=== PATIENT | female | born 1945 | race Caucasian/White ===

== ENCOUNTER 2016-07-01 07:16 | Day surgery (SDC) | payer MEDICARE, OTHER ==
[2016-07-01] MEDS ORDERED: LACTATED RINGERS 1,000 ML IV ONE (07:48)
[2016-07-01] MEDS ORDERED: fentaNYL 250 MCG/5 ML VIAL IVP ONE (08:30)
[2016-07-01] MEDS ORDERED: MIDAZOLAM 2 MG/2 ML VIAL IVP ONE (08:30)
== END 2016-07-01 07:17 | disposition home or self-care (01) ==
PROC: 0DBG8ZX Excision of Left Large Intestine, Via Natural or Artificial Opening Endoscopic, Diagnostic (ICD-10-PCS; 2016-07-01)
PROC: 0DBL8ZX Excision of Transverse Colon, Via Natural or Artificial Opening Endoscopic, Diagnostic (ICD-10-PCS; 2016-07-01)
PROC: 0DBP8ZX Excision of Rectum, Via Natural or Artificial Opening Endoscopic, Diagnostic (ICD-10-PCS; 2016-07-01)
PROC: 0DBF8ZX Excision of Right Large Intestine, Via Natural or Artificial Opening Endoscopic, Diagnostic (ICD-10-PCS; principal; 2016-07-01 08:30)
DX: Z12.11 Encounter for screening for malignant neoplasm of colon (principal); D12.2 Benign neoplasm of ascending colon; K57.30 Diverticulosis of large intestine without perforation or abscess without bleeding; Z87.19 Personal history of other diseases of the digestive system; Z88.1 Allergy status to other antibiotic agents; Z88.5 Allergy status to narcotic agent; E11.9 Type 2 diabetes mellitus without complications; G47.33 Obstructive sleep apnea (adult) (pediatric); E03.9 Hypothyroidism, unspecified
CPT/HCPCS: 45380; 88305; J3010; J7120

== ENCOUNTER 2018-01-13 09:36 | Outpatient (CLI) | payer MEDICARE, OTHER ==
--- NOTE | 2018-01-13 12:13 | CARDIAC PROCEDURE NOTE ---
DATE OF SERVICE: 01/13/2018 Physician: JESSICA Ray PRIMARY CARE PHYSICIAN: Dr. Mcintyre. PROCEDURE: Exercise tolerance test. PROCEDURE SYMPTOMS: Atypical chest pain. CARDIAC RISK FACTORS 1. Age. 2. Diabetes. 3. Hyperlipidemia. CLINICAL HISTORY: 72-year-old female without known coronary artery disease. She has no illness symp toms today. PHYSICAL EXAMINATION VITAL SIGNS: BP 132/84, heart rate 60, height 62 inches, weight 172 pounds, BMI 31.5. PROCEDURE AND FINDINGS Patient's identity and date are verified and consent signed. Patient performed treadmill exercise using a modified David protocol with maximum speed of 1.7 miles per hour. She completed 8 minutes, 55 seconds, and a workload of 4.64 metabolic equivalents. Elvira l blood pressure was 162/70 with a heart rate of 148 beats per minute or 100% of maximal predicted he art rate for age. On stopping exercise, the patient had transient hypotension to BP 95/54 accompanie d by mild lightheadedness. Patient stopped because of leg fatigue. The resting ECG demonstrated nor mal sinus rhythm with a rare PVC. Maximal ST segment depression was less than 0.5 mm and upsloping. There was rare single PVC ectopy. FINAL IMPRESSIONS 1. No ECG indications of ischemia. 2. No anginal symptoms. 3. Rare PVC ectopy. 4. Mild dizziness with transient BP drop on cessation of exercise. TD: 01/13/2018 11:37
[2018-01-13 15:54] VITALS: BP 110/68
== END 2018-01-13 09:37 | disposition home or self-care (01) ==
LOC: DI 09:36
PROVIDERS: ATTEND Family Medicine
DX: R07.89 Other chest pain (principal)

== ENCOUNTER 2018-08-28 12:40 | Outpatient (CLI) | payer MEDICARE, OTHER ==
--- NOTE | 2018-08-29 00:20 | Ultrasound Report ---
Reason: PAIN NECK/THROAT Procedure Date: 08/28/2018 Accession Number: [id number] / [id number] Procedure: US - Head or Neck Soft Tissue CPT Code: FULL RESULT: EXAM: NECK ULTRASOUND EXAM DATE: 08/28/2018 02:00 PM. CLINICAL HISTORY: PAIN NECK/THROAT. COMPARISON: None. TECHNIQUE: Real-time sonographic imaging was performed by the skinner pelts utilizing color-flow. Multiple customer retention representative static images were saved for review. FINDINGS: Normal subcutaneous soft tissues are noted in the area of clinical concern. Specifically, no mass or adenopathy identified. No collections are present. IMPRESSION: 1. No concerning findings such as a mass, adenopathy or collection. 2. If symptoms persist or remain clinically concerning, recommend contrast-enhanced CT or MRI of the neck. [facility]
== END 2018-08-28 12:41 | disposition home or self-care (01) ==
LOC: DI 12:40
PROVIDERS: ATTEND Specialist
DX: R07.0 Pain in throat (principal); M54.2 Cervicalgia
CPT/HCPCS: 76536

== ENCOUNTER 2018-09-21 14:21 | Outpatient (CLI) | payer MEDICARE, OTHER ==
--- NOTE | 2018-09-21 15:20 | XRAY Report ---
Reason: AIRWAY OBSTRUCTION Procedure Date: 09/21/2018 Accession Number: [id number] / [id number] Procedure: XR - Neck Soft Tissue CPT Code: FULL RESULT: EXAM: SOFT TISSUE NECK RADIOGRAPHY. EXAM DATE: 09/21/2018 02:34 PM. CLINICAL HISTORY: Airway obstruction. COMPARISONS: None. TECHNIQUE: 2 views. FINDINGS: Soft Tissues: No prevertebral soft tissue swelling. The epiglottis and aryepiglottic folds are unremarkable. No tonsillar or adenoidal enlargement. No radiopaque foreign body. Regional Skeleton: Unremarkable for age. Other: The visualized lung apices are clear. IMPRESSION: Normal soft tissue neck radiography. [facility]
== END 2018-09-21 14:22 | disposition home or self-care (01) ==
LOC: DI 14:21
PROVIDERS: ATTEND Specialist
DX: J98.8 Other specified respiratory disorders (principal)
CPT/HCPCS: 70360

== ENCOUNTER 2019-04-26 20:56 | Emergency (ER) | payer MEDICARE, OTHER ==
[2019-04-26 21:25] LABS: BASOPHILS # (AUTO) 0.1 10^3/uL (0.0-0.1); BASOPHILS % (AUTO) 0.6 %; EOSINOPHILS # (AUTO) 0.3 10^3/uL (0.0-0.7); EOSINOPHILS % (AUTO) 3.6 %; HGB - HEMOGLOBIN 12.4 g/dL (12.0-16.0); LYMPHOCYTES # (AUTO) 3.1 10^3/uL (1.5-3.5); MEAN CORPUSCULAR HEMOGLOBIN 29.9 pg (27.0-31.0); MEAN CORPUSCULAR HGB CONC 32.5 g/dL (32.0-36.0); MEAN PLATELET VOLUME 9.5 fL (7.9-10.8); MONOCYTES # (AUTO) 0.5 10^3/uL (0.0-1.0); MONOCYTES % (AUTO) 5.7 %; NEUTROPHILS # (AUTO) 4.4 10^3/uL (1.5-6.6); NEUTROPHILS % (AUTO) 52.9 %; PLT - PLATELET COUNT 259 10^3/uL (130-450); RED BLOOD COUNT 4.15 10^6/uL (4.20-5.40); WHITE BLOOD COUNT 8.4 x10^3/uL (4.8-10.8)
[2019-04-26 21:36] LABS: ALBUMIN/GLOBULIN RATIO 1.3 (1.0-2.2); BILIRUBIN,TOTAL 0.4 mg/dL (0.2-1.0); CALCIUM 9.1 mg/dL (8.5-10.3); CREATININE 0.7 mg/dL (0.4-1.0)
--- NOTE | 2019-04-26 21:44 | XRAY Report ---
Reason: chest pain Procedure Date: 04/26/2019 Accession Number: [id number] / [id number] Procedure: XR - Chest 1 View X-Ray CPT Code: 47284 Final Report FULL RESULT: EXAM: CHEST RADIOGRAPHY EXAM DATE: 04/26/2019 09:24 PM. CLINICAL HISTORY: Chest pain. COMPARISON: CHEST 2 VIEW PA/LAT 04/28/2013 4:51 PM. TECHNIQUE: 1 view. FINDINGS: Lungs/Pleura: No significant consolidation, effusion, or definite pneumothorax. Mediastinum: Cardiac silhouette is within normal limits when accounting for lung volumes and technique. Other: Subacute fracture of the anterior portion of the right fourth rib. IMPRESSION: Stable appearance. No acute cardiopulmonary abnormality demonstrated. [facility]
--- NOTE | 2019-04-26 22:07 | ED Physician Documentation ---
PD HPI CHEST PAIN - Stated complaint Stated Complaint: CHEST PX - Chief complaint Chief Complaint: Cardiac - History obtained from History obtained from: Patient, Family - History of Present Illness Timing - onset: Enter time (1999), Today Timing - onset during: Rest Timing - duration: Minutes Timing - details: Abrupt onset, Now resolved Quality: Sharp, Pain Location: Substernal Radiation: No: Jaw, Neck, Back, Abdominal, Left upper extremity, Right upper extremity Improved by: Rest Worsened by: No: Inspiration, Movement, Palpation Associated symptoms: No: Shortness of air, Diaphoresis, Nausea, Feeling faint / dizzy, General Weakness, Palpitations, Cough Similar symptoms before: Has not had sx before Recently seen: Not recently seen - Additional information Additional information: Previously well 73-year-old female with a history of type 2 diabetes and hypertension was sitting on her couch night at 8:00 when she developed some substernal pain in her chest. She denies any radiation to her neck jaw or back the episode was brief in nature when it recurred she became concerned and her has brought her to the emergency department. She is also complaining of a headache that is throbbing in nature it is not present now it was present after this episode of pain and she indicates that she is cut down on her caffeine and did not drink coffee today. She has previously been evaluated for chest pain with a an exercise treadmill test which was negative. She does have a family history of coronary disease in her father and grandfather but not early disease. Review of Systems Constitutional: denies: Fever Eyes: denies: Decreased vision Ears: denies: Ear pain Nose: denies: Rhinorrhea / runny nose, Congestion Cardiac: reports: Chest pain / pressure. denies: Palpitations, Pedal edema, Calf pain Respiratory: denies: Dyspnea, Cough GI: denies: Abdominal Pain, Nausea, Vomiting : denies: Dysuria, Frequency Skin: denies: Rash Musculoskeletal: denies: Neck pain, Back pain, Extremity pain Neurologic: denies: Generalized weakness, Focal weakness, Numbness PD PAST MEDICAL HISTORY - Past Medical History Past Medical History: Yes Cardiovascular: High cholesterol Respiratory: Asthma, Sleep apnea, CPAP use Endocrine/Autoimmune: Type 2 diabetes, HyPOthyroidism GI: GERD, Ulcerative colitis : Incontinence, Frequency HEENT: None, Chronic vision loss Psych: None Musculoskeletal: Other Derm: Other - Past Surgical History Past Surgical History: No General: Cholecystectomy, Colonoscopy HEENT: Tonsil/Adenoidectomy - Present Medications Home Medications: Ambulatory Orders Medication Instructions Recorded Confirmed Albuterol [Ventolin Hfa] PRN 08/29/13 04/29/14 Levothyroxine Sodium [Synthroid] 75 mcg PO 08/29/13 04/29/14 Metformin HCl [Metformin HCl ER] 500 mg PO DAILY 08/29/13 04/29/14 Omeprazole [Prilosec] 10 mg PO 08/29/13 04/29/14 Aspirin [Katie Chewable] 81 mg PO DAILY 04/29/14 04/29/14 Flaxseed Oil 1,000 mg PO 04/29/14 04/29/14 - Allergies Allergies/Adverse Reactions: Allergies Allergy/AdvReac Type Severity Reaction Status Date / Time nitrofurantoin Allergy Rash Verified 04/29/14 09:22 [From Macrobid] nitrofurantoin Allergy Rash Verified 04/29/14 09:22 macrocrystalline * [From Macrobid] codeine AdvReac Mild Unknown Verified 04/29/14 09:22 - Social History Does the pt smoke?: No Smoking Status: Never smoker Does the pt drink ETOH?: Yes Does the pt have substance abuse?: No - Immunizations Immunizations are current?: Yes - POLST Patient has POLST: No PD ED PE NORMAL - Vitals Vital signs reviewed: Yes (Mild hypertension) - General General: Alert and oriented X 3, No acute distress, Well developed/nourished - HEENT HEENT: Atraumatic, PERRL, EOMI - Neck Neck: Supple, no meningeal sign, No bony TTP - Cardiac Cardiac: RRR, No murmur - Respiratory Respiratory: No respiratory distress, Clear bilaterally, Other (No chest wall tenderness) - Abdomen Abdomen: Normal bowel sounds, Soft, Non tender, Non distended, No organomegaly - Back Back: No CVA TTP, No spinal TTP - Derm Derm: Normal color, Warm and dry, No rash, Other - Extremities Extremities: No deformity, No edema, No calf tenderness / cord - Neuro Neuro: Alert and oriented X 3, bending frame operator 2-12 intact, No motor deficit, No sensory de ficit, Normal speech Eye Opening: Spontaneous Motor: Obeys Commands Verbal: Oriented GCS Score: 15 - Psych Psych: Normal mood, Normal affect Results - Vitals Vitals: Vital Signs - 24 hr 04/26/19 21:03 Temperature 37.1 C Heart Rate 63 Respiratory 15 Rate Blood Pressure 133/60 H O2 Saturation 96 Oxygen O2 Source Room air - Labs Labs: Laboratory Tests 04/26/19 04/26/19 04/26/19 21:18 21:18 21:18 WBC 8.4 RBC 4.15 L Hgb 12.4 Hct 38.2 MCV 92.0 MCH 29.9 MCHC 32.5 RDW 13.0 Plt Count 259 MPV 9.5 Neut # (Auto) 4.4 Lymph # (Auto) 3.1 [place] # (Auto) 0.5 Eos # (Auto) 0.3 Baso # (Auto) 0.1 Absolute Nucleated RBC 0.00 Nucleated RBC % 0.0 Sodium 138 Potassium 3.9 Chloride 101 Carbon Dioxide 24 Anion Gap 13.0 BUN 10 Creatinine 0.7 Estimated GFR (MDRD) 82 L Glucose 129 H Calcium 9.1 Total Bilirubin 0.4 AST 22 ALT 20 Alkaline Phosphatase 55 Troponin I High Sens 3.2 Total Protein 7.0 Albumin 4.0 Globulin 3.0 Albumin/Globulin Ratio 1.3 Lipase 33 04/26/19 23:00 WBC RBC Hgb Hct MCV MCH MCHC RDW Plt Count MPV Neut # (Auto) Lymph # (Auto) [place] # (Auto) Eos # (Auto) Baso # (Auto) Absolute Nucleated RBC Nucleated RBC % Sodium Potassium Chloride Carbon Dioxide Anion Gap BUN Creatinine Estimated GFR (MDRD) Glucose Calcium Total Bilirubin AST ALT Alkaline Phosphatase Troponin I High Sens < 2.3 L Total Protein Albumin Globulin Albumin/Globulin Ratio Lipase - Rads (name of study) Chest Radiology: Prelim report reviewed, EMP read indepedently, See rad report Procedures - Bedside sono Bedside sono by EMP: With use of bedside ultrasound the gallbladder is imaged, it is contracted, there are no obvious stones. The gallbladder is sonographically nontender. - IVC sono (time) 2002 Bedside IVC sono: IVC measures (cm) (0.97), IVC collapsed c insp (cm) (complete), Dehydration (est 1+ liter deficit) PD MEDICAL DECISION MAKING - ED course Complexity details: reviewed old records, reviewed results, re-evaluated patient, considered differential, d/w patient Departure - Departure Disposition: 01 Home, Self Care Clinical Impression: Atypical chest pain Condition: Stable Instructions: ED Chest Pain Atypical Unkn Cause Follow-Up: Martell Mcintyre DO [Primary Care Provider] -
[2019-04-26 23:46] VITALS: BP 135/80
== END 2019-04-26 23:46 | disposition home or self-care (01) ==
LOC: ED 20:56
DX: R07.89 Other chest pain (principal); R51 Headache; E86.0 Dehydration; K82.0 Obstruction of gallbladder; I10 Essential (primary) hypertension; E11.9 Type 2 diabetes mellitus without complications; Z79.84 Long term (current) use of oral hypoglycemic drugs; Z79.82 Long term (current) use of aspirin; Z82.49 Family history of ischemic heart disease and other diseases of the circulatory system
CPT/HCPCS: 36415; 71045; 80053; 83690; 84484; 85025; 93005; 99283; 99284

== ENCOUNTER 2019-07-18 10:53 | Outpatient (CLI) | payer MEDICARE, OTHER ==
--- NOTE | 2019-07-18 15:07 | CT Report ---
Reason: MILD DEMENTIA Procedure Date: 07/18/2019 Accession Number: [id number] / [id number] Procedure: CT - HEAD WO CPT Code: Final Report FULL RESULT: CT HEAD WITHOUT CONTRAST INDICATION: 74-year-old female with mild dementia. TECHNIQUE: Sequential 5 mm axial images were obtained through the brain. In accordance with CT protocol optimization, one or more of the following dose reduction techniques were utilized for this exam: automated exposure control, adjustment of mA and/or KV based on patient size, or use of iterative reconstructive technique. COMPARISON: None. FINDINGS: There is generalized dilatation of the cerebral cortical sulci and cerebellar folia considered within normal limits for stated age. There is mild to moderate third/lateral ventriculomegaly that is likely ex vacuo in nature. There is no apparent discordance between the degree of ventriculomegaly and the amount of cortical sulcal dilatation to suggest the possibility of NPH or other form of hydrocephalus. Noted is a cavum vellum interpositum a normal anatomical variant. A mild amount of white matter disease is identified in the supratentorial brain, likely representing chronic microangiopathy. The attenuation of the cortex and white matter is otherwise unremarkable. There is no intracranial hemorrhage or abnormal extra-axial fluid collection. No mass effect or midline shift. There is calcified atherosclerotic plaque at the carotid siphons bilaterally. The skull and skull base appear intact. The middle ear cavities and imaged mastoid air cells appear clear. The imaged paranasal sinuses appear clear. IMPRESSION: 1. Senescent changes are demonstrated within the brain, considered within normal limits for stated age. 2. No specific focal atrophy is identified. 3. A mild amount of white matter disease is identified, likely representing chronic microangiopathy. 4. There is mild intracranial atherosclerosis. 5. No other significant intracranial findings on this unenhanced head CT. In particular there is no evidence of infarction, hemorrhage or space-occupying mass.
== END 2019-07-18 10:54 | disposition home or self-care (01) ==
LOC: DI 10:53
PROVIDERS: ATTEND Family Medicine
DX: F03.90 Unspecified dementia, unspecified severity, without behavioral disturbance, psychotic disturbance, mood disturbance, and anxiety (principal); R90.82 White matter disease, unspecified; I65.23 Occlusion and stenosis of bilateral carotid arteries
CPT/HCPCS: 70450